=== PATIENT | male | born 1980 | race Caucasian/White ===

== ENCOUNTER 2019-08-14 14:46 | Emergency (ER) | payer SELFPAY ==
--- NOTE | ~2019-08-14 | XR_ITS ---
XR chest 2V DATE: 08/14/2019 15:12 INDICATION: Cough. History of asthma. TECHNIQUE: 2 views COMPARISON: None FINDINGS: Normal heart size. No hilar or mediastinal enlargement. No pulmonary infiltrate or consolid ation, pleural effusion or pulmonary vascular congestion or pneumothorax. IMPRESSION: Negative Reviewed, dictated and finalized at location A. IMPRESSION: Negative
[2019-08-14 15:01] VITALS: BP 112/86; PULSE 92; RESP 18; TEMP 36.2; O2SAT 100
--- NOTE | 2019-08-14 15:06 | ED.URI ---
HPI - URI/Sore Throat General Chief Complaint: Upper Respiratory Infection Stated Complaint: Cough/CP/SOB Time Seen by Provider: 08/14/19 15:00 Source: patient and RN notes reviewed History of Present Illness HPI Narrative: Patient is a 38-year-old male that presents the urgent care with complaints of upper respiratory symptoms for the last 2 to 3 weeks. 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 Patient states that he has intermittent shortness of breath however he also has a history of asthma and smokes 2 packs of cigarettes per day. Patient denies chest pain. States that he has been using nebulizer treatments at home for his shortness of breath which does improve. Patient also reports of a productive occasional cough. Patient also states that he has had a sore throat for the last couple days but denies any known fever. Patient states that his mother is a nurse and told him to come to the urgent care because she thinks he needs antibiotics, nebulizer solution, inhalers and a steroid . Patient states that he is use Benadryl, Zyrtec, DayQuil, NyQuil, Zantac. Patient is in no way in any acute distress at this time. Patient is not dyspneic and completing sentence without any difficulty. No other acute complaints. Patient aware of the plan of care. Related Data Allergies Allergy/AdvReac Type Severity Reaction Status Date / Time No Known Allergies Allergy Verified 08/14/19 15:02 Review of Systems Review of Systems: Narrative: CONSTITUTIONAL: Denies fever, chills, or sweats. EYES: Denies visual changes, redness, or discharge. ENT: Denies rhinorrhea, congestion, sore throat, or otalgia. CARDIOVASCULAR: Denies chest pain, palpitations, or edema. RESPIRATORY: Denies cough or dyspnea. GASTROINTESTINAL: Denies abdominal pain, nausea, vomiting, or diarrhea. GENITOURINARY: Denies dysuria or hematuria. SKIN: Denies rash or itching. MUSCULOSKELETAL: Denies back pain, joint pain, or myalgia. NEUROLOGIC: Denies headache, numbness, or weakness. All other systems reviewed are negative, except as documented in HPI. ON LICENSE OF [facility] Social History Social History Gender identity (if verbalized by the patient): Male Comments At the time of my signature, I reviewed and agree with the nursing past medical, surgical, social, and family history. There is no relevant family history pertinent to the patient complaint. Exam Narrative: Exam Narrative: GENERAL: This is a well-nourished, well-developed patient, in no apparent distress. HEAD: normocephalic, atraumatic. EYES: PERRL. Sclera clear/white. Vision is grossly intact. EARS: External ears normal, auditory canals clear and without drainage, TMs normal without perforation. Hearing grossly intact. NOSE: External nose normal with no obvious nasal discharge, nares without redness, no rhinorrhea. THROAT: Mucous membranes moist, mild erythema noted posterior oropharynx with mild postnasal drainage. NECK: Neck supple CARDIOVASCULAR: Regular rate and rhythm without murmurs, gallops, or rubs. RESPIRATORY: Clear to auscultation. Breath sounds equal bilaterally, slightly diminished throughout. SKIN: warm, intact with no suspicious lesions or rash, good texture and turgor. NEURO: awake, alert, and oriented to person, place and time. There were no obvious focal neurologic abnormalities. EXTREMITIES: No clubbing, cyanosis, or edema. Course Vital Signs Vital signs: Vital Signs Temperature 97.2 F L 08/14/19 15:01 Pulse Rate 92 08/14/19 15:01 Respiratory Rate 18 08/14/19 15:01 Blood Pressure 112/86 08/14/19 15:01 Pulse Oximetry 100 08/14/19 15:01 Temperature 97.2 F L 08/14/19 15:01 Pulse Rate 92 08/14/19 15:01 Respiratory Rate 18 08/14/19 15:01 Blood Pressure 112/86 08/14/19 15:01 Pulse Oximetry 100 08/14/19 15:01 Reviewed MDM - URI/Sore Throat MDM Narrative Medical decision making narrative: Reviewed lab results wit
== END 2019-08-14 15:45 | disposition home or self-care (01) ==
PROVIDERS: Emergency Provider Nurse Practitioner Family
DX: J45.20 Mild intermittent asthma, uncomplicated (principal)
CPT/HCPCS: 71046; 87081; 87880; 99203; G0463

== ENCOUNTER 2022-12-15 16:03 | Emergency (ER) | payer BC, OTHER, SELFPAY ==
--- NOTE | ~2022-12-15 | XR_ITS ---
EXAMINATION: XR knee RT min 4V DATE: 12/15/2022 16:35 INDICATION: Right knee pain. TECHNIQUE: 4 views of right knee were obtained. COMPARISON: None. FINDINGS: Bone alignment is normal. No fracture. There is mild osteoarthritis of lateral and patellof emoral compartments characterized by tiny marginal osteophytes. No joint space narrowing. No knee alyssa nt effusion. IMPRESSION: 1. Mild right knee osteoarthritis. Reviewed, dictated and finalized at location E.
--- NOTE | 2022-12-15 16:05 | ED.LOWEXIN ---
HPI - Extremity Injury (Lower) General Chief Complaint: Extremity Injury, Lower Stated Complaint: right knee injury Time Seen by Provider: 12/15/22 16:47 Source: patient and RN notes reviewed Mode of arrival: ambulatory Limitations: no limitations History of Present Illness HPI Narrative: 42-year-old male presents with for right knee injury. Reports today he tripped over his dog causing anterior right knee pain. Reports he cannot bear weight on his right knee. He denies any intervention. MD complaint: knee injury Related Data Allergies Allergy/AdvReac Type Severity Reaction Status Date / Time No Known Allergies Allergy Verified 08/14/19 15:02 Review of Systems Review of Systems: CONSTITUTIONAL: Denies malaise, chills, sweats, or fever. SKIN: Denies rash or itching, open skin, laceration, abrasion, redness, warmth, swelling. MUSCULOSKELETAL: Reports right knee pain NEUROLOGIC: Denies numbness, weakness All systems reviewed & are unremarkable except as noted in HPI and below PMFSH Social History Social History Gender identity (if verbalized by the patient): Male Comments At time of signature, agree with nursing past medical, surgical, social and family history. There is no relevant family history pertinent to the presenting complaint Exam Narrative: GENERAL: Well-appearing, well-nourished, and in no acute distress. HEAD: Normocephalic, atraumatic. EYES: PERRLA, conjunctivae clear NECK: Supple. CHEST: Speaks in full sentences. No respiratory distress. HEART: Regular rate and rhythm. Normal and equal peripheral pulses. EXTREMITIES: Right knee has grossly normal strength and sensation, limited range of motion. No edema or ecchymosis. Normal sensation with sensitivity to light touch and pain. Anterior tenderness. No open wounds, no skin tenting, no devitalized tissue or atrophy, no trophic changes, no obvious deformity, alignment normal, nearby joints and structures intact. Distal pulses palpable and equal bilaterally, skin warm, dry, pink. Capillary refill less than 3 seconds. SKIN: Warm, dry, no rash. NEURO: Alert and oriented x3. PSYCH: Normal mood and affect Course Course Emergency Course: Patient is aware of diagnosis, understands and agrees to treatment plan. Anticipatory guidance given. Patient agrees to follow-up as directed and is aware of reasons to seek care at the emergency department. Portions of this record may have been created with voice recognition software Level of Care: [facility] Visit Vital Signs Vital signs: Reviewed. MDM - Extremity Injury (Lower) MDM Narrative Medical decision making narrative: Patients injury and pain is consistent with musculoskeletal etiology. No signs of neurological or vascular compromise on exam. Compartments and tissues are soft without signs of compartment syndrome. Pain is felt appropriate for further evaluation on an outpatient basis. Imaging Data My impression: Images reviewed, interpreted by radiologist, agree, see report. Radiologist's impression: EXAMINATION: XR knee RT min 4V DATE: 12/15/2022 16:35 INDICATION: Right knee pain. TECHNIQUE: 4 views of right knee were obtained. COMPARISON: None. FINDINGS: Bone alignment is normal. No fracture. There is mild osteoarthritis of lateral and patellofemoral compartments characterized by tiny marginal osteophytes. No joint space narrowing. No knee joint effusion. IMPRESSION: 1. Mild right knee osteoarthritis. Critical Care Time Critical Care Time Critical Care Time: No Discharge Plan Discharge Clinical Impression: Injury of knee Patient Disposition: Home, Self-Care Condition: Stable Instructions: Knee Pain (ED) Additional Instructions: Avoid activities that cause pain until the pain subsides. Ice to the area 20-30 minutes 4-6 times a day Elevate above heart Elastic wrap as directed for comfort for the next 5-7 days Crutches as directed if needed Tylenol for le
[2022-12-15 16:22] VITALS: BP 114/80; PULSE 78; RESP 16; TEMP 37; O2SAT 98
== END 2022-12-15 16:57 | disposition home or self-care (01) ==
PROVIDERS: Emergency Provider Nurse Practitioner; PCP Family Medicine
DX: S89.91XA Unspecified injury of right lower leg, initial encounter (principal); W01.0XXA Fall on same level from slipping, tripping and stumbling without subsequent striking against object, initial encounter; J45.909 Unspecified asthma, uncomplicated
CPT/HCPCS: 73564; 99213; G0463

== ENCOUNTER 2022-12-19 21:55 | Emergency (ER) | payer BC, SELFPAY ==
--- NOTE | ~2022-12-19 | XR_ITS ---
EXAM: XR knee RT min 4V DATE: 12/19/2022 22:24 HISTORY: pain/swelling/fall TODAY WALKING DOG . COMPARISON: 12/15/2022. FINDINGS: Normal mineralization. No fracture or dislocation. No lytic or blastic lesion. Mild tricom partmental osteoarthritis. Mild patellar enthesopathy. Large volume joint fluid. No erosion or perios teal change. Soft tissues within normal limits. IMPRESSION: No acute osseous finding in the right knee. Large right knee joint effusion. Reviewed, dictated and finalized at location K.
[2022-12-19 21:56] VITALS: BP 124/78; PULSE 69; RESP 18; TEMP 36.4; O2SAT 97
--- NOTE | 2022-12-19 22:27 | ED.LOWEXIN ---
HPI - Extremity Injury (Lower) General Chief Complaint: Extremity Injury, Lower Stated Complaint: knee swelling and pain to right knee Time Seen by Provider: 12/19/22 22:04 Source: patient Mode of arrival: ambulatory Limitations: no limitations History of Present Illness HPI Narrative: Patient is a 42 y/o male who presents to the ED with c/o R knee pain. Patient reports he injured his right knee last Saturday after tripping over his dog. He states his leg went one direction and his knee bent the opposite direction. He was seen at an urgent care and had negative X-rays. Patient has been improving each day since then, resting, elevating, taking ibuprofen for pain. Tonight, he was taking his dog out to the restroom and the leash got wrapped around his leg. He fell again, landing directly on his right knee. He complains of worsening pain and swelling since then. He is able to ambulate, but complains of pain with this. Denies any numbness or tingling. Patient took ibuprofen around 8:30 PM. Related Data Allergies Allergy/AdvReac Type Severity Reaction Status Date / Time No Known Allergies Allergy Verified 12/19/22 21:56 Review of Systems Review of Systems: CONSTITUTIONAL: Denies fever, chills, or sweats. SKIN: See HPI. MUSCULOSKELETAL: See HPI. NEUROLOGIC: Denies tingling, numbness, or weakness. All systems reviewed & are unremarkable except as noted in HPI and below PMFSH Social History Social History Gender identity (if verbalized by the patient): Male Exam Narrative: GENERAL: Well appearing, well-nourished, non-toxic, in no acute distress. HEAD: Normocephalic, atraumatic. NECK: Supple. No adenopathy, no masses. RESPIRATORY: Airway patent, respirations nonlabored. CARDIOVASCULAR: Regular rate and rhythm without murmurs, rubs, or gallops. Pedal pulses 2+ and equal bilaterally. MUSCULOSKELETAL: Essentially full flexion range of motion of right knee, but discomfort reported with full extension of right knee. Discomfort with any manipulation of knee/provocative testing (anterior drawer, varus/valgus stress testing). Tenderness to palpation along inferior and medial joint spaces. Mild swelling noted anteriorly. No redness or warmth noted to anterior knee. Sensation intact. SKIN: Warm, dry, normal color. No rashes. NEURO: A&O X3. Speech clear. Cranial nerves II-XII grossly intact. No ataxic movements. PSYCHIATRIC: Appropriate mood and affect. Normal interaction. Course Vital Signs Vital signs: Vital Signs Temperature 97.6 F 12/19/22 21:56 Pulse Rate 69 12/19/22 21:56 Respiratory Rate 18 12/19/22 21:56 Blood Pressure 124/78 12/19/22 21:56 Pulse Oximetry 97 12/19/22 21:56 Oxygen Delivery Room Air 12/19/22 21:56 Temperature 97.6 F 12/19/22 21:56 Pulse Rate 69 12/19/22 21:56 Respiratory Rate 18 12/19/22 21:56 Blood Pressure 124/78 12/19/22 21:56 Pulse Oximetry 97 12/19/22 21:56 Oxygen Delivery Room Air 12/19/22 21:56 MDM - Extremity Injury (Lower) MDM Narrative Medical decision making narrative: Patient's injury is consistent with musculoskeletal etiology. No signs of neurologic or vascular compromise on physical examination. Compartments are soft without signs of compartment syndrome. XR showing large joint effusion, no other osseous abnormality. Patient updated on imaging results. Pain is consistent with exam and injury. Patient is felt to be stable for discharge home and further outpatient management and treatment. Will provide patient with knee immobilizer for support. Will provide patient with orthopedic information for follow-up. He has crutches at home that he has been using. Discussed RICE therapy and reasons to return. Patient agrees with plan. Patient discharged in stable condition. Medical Records Attestation: I reviewed the patient's medical records. Imaging Data Attestation: I personally reviewed and interpreted this imaging study as follows:
[2022-12-19] MEDS: ACETAMINOPHEN 500 MG TABLET 1000 MG PO (22:57)
== END 2022-12-19 23:09 | disposition home or self-care (01) ==
PROVIDERS: Emergency Provider Physician Assistant; PCP Family Medicine
DX: M23.91 Unspecified internal derangement of right knee (principal); S89.91XA Unspecified injury of right lower leg, initial encounter; M25.461 Effusion, right knee; W18.39XA Other fall on same level, initial encounter; Y93.K1 Activity, walking an animal
CPT/HCPCS: 73564; 99283; A9270